=== PATIENT | male | born 1960 | race Caucasian/White ===

== ENCOUNTER 2017-05-04 19:38 | Inpatient (IN) | payer OTHER ==
[~2017-05-04] VITALS: Ht 167.6 cm; Wt 81.6 kg
[~2017-05-04 19:38] MED LIST: AMOX-842 PO; DULCOLAX; OXYC1TAB PO; [UNRECOGNIZED DRUG - CODE] PO
[2017-05-04 19:41] VITALS: BP 130/83
--- NOTE | 2017-05-04 19:45 | NUR ---
Patient to bed 07.
--- NOTE | 2017-05-04 19:58 | NUR ---
56 Y/O M W/C/O ABCESS TO LOWER SIDE IN BETWEEN BUTTOCKS X 2 DAYS. DENIES ANY FEVER OR CHILLS. PT CURRENTLY HAS AN STOMY BAG TO L ABD SIDE D/T HX OF CHRONS DISEASE. MED CHRONS DISEASE.
[2017-05-04] MEDS ORDERED: LIDOCAINE 1% 500 MG/50 ML VIAL INJ ONE (20:25)
--- NOTE | 2017-05-04 20:31 | NUR ---
Dr. Donnelly evaluating patient at bedside.
[2017-05-04] MEDS ORDERED: HYDROmorphone PFS 2 MG/ML SYR IVP ONE (20:35)
[2017-05-04] MEDS ORDERED: NACL 0.9% 1,000 ML IV ONE (20:35)
[2017-05-04] MEDS ORDERED: CLINDAMYCIN 900 MG in DEXTROSE 5% 100 ML IV ONE (20:35)
[2017-05-04] MEDS ORDERED: CLINDAMYCIN 900 MG/6 ML VIAL IV ONE (20:47)
--- NOTE | 2017-05-04 20:55 | NUR ---
Patient going to CT via wheelchair per tech.
--- NOTE | 2017-05-04 21:04 | NUR ---
Patient back from CT via wheelchair per tech.
[2017-05-04 21:05] LABS: BASOPHILS # (AUTO) 0.3 K/uL (0.00-0.22); BASOPHILS % (AUTO) 1.7 % (0.0-2.0); EOSINOPHILS # (AUTO) 0.3 K/uL (0-0.4); EOSINOPHILS % (AUTO) 2.2 % (0.0-4.0); HEMATOCRIT 45.2 % (36-52); HEMOGLOBIN 14.7 g/dL (12.0-18.0); LYMPHOCYTES # (AUTO) 2.2 K/uL (2.0-11.5); LYMPHOCYTES % (AUTO) 14.3 % (20.5-51.1); MEAN CORPUSCULAR HEMOGLOBIN 31 pg (27-31); MEAN CORPUSCULAR HGB CONC 33 g/dL (33-37); MEAN CORPUSCULAR VOLUME 94 fL (80-94); MONOCYTES # (AUTO) 0.7 K/uL (0.8-1.0); MONOCYTES % (AUTO) 4.6 % (1.7-9.3); NEUTROPHILS % (AUTO) 77.2 % (42.2-75.2); PLATELET COUNT (AUTO) 238 K/uL (140-450); RED BLOOD CELL COUNT(AUTO) 4.82 MIL/uL (4.20-6.10); RED CELL DISTRIBUTION WIDTH 13.3 % (11.6-13.7); WHITE BLOOD COUNT (AUTO) 15.5 K/uL (4.8-10.8)
[2017-05-04 21:16] LABS: INR 1.1 (0.8-1.2); PARTIAL THROMBOPLASTIN TIME 27.7 secs (22-35.6); PROTHROMBIN TIME 10.1 secs (10.8-13.4)
[2017-05-04 21:21] LABS: ALBUMIN 3.5 g/dL (3.4-5.0); ANION GAP 12.6 (8-16); CALCIUM 8.8 mg/dL (8.5-10.1); CARBON DIOXIDE 25.2 mmol/L (21-32); POTASSIUM 3.8 mmol/L (3.5-5.1); TOTAL BILIRUBIN 0.4 mg/dL (0.0-1.0); TOTAL PROTEIN, SERUM 7.3 g/dL (6.4-8.2)
[2017-05-04] MEDS: NACL 0.9% 1,000 ML IV SCH (22:17)
[2017-05-04] MEDS ORDERED: ONDANSETRON 4 MG/2 ML VIAL IVP PRN (22:20)
[2017-05-04] MEDS ORDERED: MORPHINE SULFATE 2 MG/ML SYR IVP PRN (22:20)
[2017-05-04] MEDS ORDERED: LORazepam 2 MG/ML VIAL IVP PRN (22:20)
[2017-05-04] MEDS ORDERED: HYDROcodone/APAP 5/325 MG 1 TAB TAB PO PRN (22:20)
[2017-05-04] MEDS ORDERED: ACETAMINOPHEN 325 MG TAB PO PRN (22:20)
[2017-05-04] MEDS ORDERED: oxyCODONE/APAP 5/325 MG 1 TAB TAB PO SCH (22:25)
[2017-05-04] MEDS ORDERED: metroNIDAZOLE 500 MG/NS PREMIX 100 ML IV SCH (22:25)
--- NOTE | 2017-05-04 22:36 | NUR ---
Patient will be admitted to care of DR CURTIS. [facility]. Will go to [id number]. Belongings list completed. Report to BILLIE STOREY.
--- NOTE | 2017-05-04 22:46 | NUR ---
PT TRASFERRED TO MED SURG VIA WHEEL CHAIR BY EMT.
--- NOTE | 2017-05-04 23:07 | NUR ---
RECEIVED FROM ER PER LEXII AWAKE AND ALERT. ORIENTED X 4. DX. OF QIANA RECTAL ABSCESS. NO SOB. CONSULT WITH Kat ALCALA. ROM X 4. CLEAR SPEECH. IVF SITE TO [facility] #20. CARE PLANS FOR THE NIGHT DISCUSSED WITH HIM. CALL LIGHT WITH IN REACH AND ENCOURAGED TO CALL FOR ANY HELP HE MAY NEED OR IF IN PAIN.
--- NOTE | 2017-05-04 23:47 | NUR ---
INFORMED PT. THAT HE IS NPO EFFECTIVE MIDNIGHT ORDERED. "OK"
[2017-05-04 23:49] VITALS: BP 130/83
[2017-05-05] VITALS (9 sets, daily range): BP systolic 109–131; BP diastolic 62–78
[2017-05-05] MEDS: HYDROmorphone PFS 2 MG/ML SYR IVP PRN ×6 (00:32→20:23)
[2017-05-05] MEDS ORDERED: HYDROmorphone PFS 2 MG/ML SYR ONE (00:34)
--- NOTE | 2017-05-05 01:00 | NUR ---
PT. SLEEPING AT THIS TIME. NO RESTLESSNESS NOTED. MEDICATED WITH PAIN RELIEVER REQUESTED WITH DILAUDID 2 MG IVP AT 0030.
--- NOTE | 2017-05-05 03:32 | NUR ---
SLEEPING. NO RESTLESSNESS. CALL LIGHT WITH IN REACH.
--- NOTE | 2017-05-05 04:25 | NUR ---
PT. AWAKE AND ALERT. REQUESTED TO HAVE PAIN RELIEVER RT PERIRECTAL ABSCESS PAIN EARLIER. PT. CAME FROM RESTROOM AMBULATED BY HIMSELF. MEDICATED WITH DILAUDID 2 MG. REQUESTED AND ORDERED.
[2017-05-05] MEDS ORDERED: PIPERACILLIN/TAZOBACTAM 3.375 GM VIAL IV ONE (04:37)
[2017-05-05] MEDS ORDERED: PIPERACILLIN/TAZOBACTAM 3.375 GM in DEXTROSE 5% 50 ML IV SCH (05:00)
[2017-05-05 06:08] LABS: BASOPHILS # (AUTO) 0.1 K/uL (0.00-0.22); BASOPHILS % (AUTO) 1.2 % (0.0-2.0); EOSINOPHILS # (AUTO) 0.2 K/uL (0-0.4); EOSINOPHILS % (AUTO) 1.8 % (0.0-4.0); HEMATOCRIT 39.7 % (36-52); HEMOGLOBIN 13.7 g/dL (12.0-18.0); LYMPHOCYTES # (AUTO) 1.9 K/uL (2.0-11.5); LYMPHOCYTES % (AUTO) 18.2 % (20.5-51.1); MEAN CORPUSCULAR HEMOGLOBIN 32 pg (27-31); MEAN CORPUSCULAR HGB CONC 34 g/dL (33-37); MEAN CORPUSCULAR VOLUME 93 fL (80-94); MONOCYTES # (AUTO) 0.9 K/uL (0.8-1.0); MONOCYTES % (AUTO) 8.1 % (1.7-9.3); NEUTROPHILS # (AUTO) 7.5 K/uL (1.8-7.7); NEUTROPHILS % (AUTO) 70.7 % (42.2-75.2); PLATELET COUNT (AUTO) 212 K/uL (140-450); RED BLOOD CELL COUNT(AUTO) 4.28 MIL/uL (4.20-6.10); RED CELL DISTRIBUTION WIDTH 13.4 % (11.6-13.7); WHITE BLOOD COUNT (AUTO) 10.6 K/uL (4.8-10.8)
[2017-05-05 06:26] LABS: ANION GAP 11.9 (8-16); CALCIUM 7.8 mg/dL (8.5-10.1); CARBON DIOXIDE 26.6 mmol/L (21-32); CREATININE 0.9 mg/dL (0.6-1.3); MAGNESIUM 1.7 mg/dL (1.8-2.4); POTASSIUM 3.5 mmol/L (3.5-5.1); TOTAL BILIRUBIN 0.7 mg/dL (0.0-1.0); TOTAL PROTEIN, SERUM 6.5 g/dL (6.4-8.2)
--- NOTE | 2017-05-05 06:51 | NUR ---
SLEEPING AT THIS TIME. WAKES UP EASILY WHEN TOUCHED OR CALLED BY NAME. ABLE TO USE CALL LIGHT FOR HELP.
--- NOTE | 2017-05-05 07:10 | NUR ---
RECEIVED PT REPORT AT BEDSIDE FROM NIGHT NURSE. PT IS SLEEPING COMFORTABLY IN BED AND SHOWS NO S/S OF DISTRESS ON ROOM AIR. PT HAD NOTED IV ON THE R AC WITH IVF RUNNING. PT HAS COLOSTOMY BAD INTACT. PT SHOWS NO S/S OF DISCOMFORT OR PAIN. PT BED LOWERED WITH CALL LIGHT AT BEDSIDE.
--- NOTE | 2017-05-05 08:30 | NUR ---
PT C/O PAIN OF 10/10. 10 BEING HIS WORST PAIN. PT MEDICATED WITH AVAILABLE PRN PAIN MEDICATION. ADMINISTERED SCHEDULED MEDICATIONS. PT REFUSED SCHEDULED LOVENOX 40MG SQ INJ. PT STATES HIS ABSCESS "BURST". ABSCESS HAS MINIMAL BLOOD AND NOT DRAINING.
[2017-05-05] MEDS: NACL 0.9% 1,000 ML IV SCH ×2 (08:45→19:13)
[2017-05-05] MEDS: ENOXAPARIN 40 MG/0.4 ML SYR SUBQ SCH (08:46)
--- NOTE | 2017-05-05 08:49 | NUR ---
PATIENT HAS BEEN SCREENED AND CATEGORIZED MODERATE NUTRITION RISK. PATIENT WILL BE SEEN WITHIN 3-5 DAYS OF ADMISSION. 05/07/17-05/09/[address]
--- NOTE | 2017-05-05 09:30 | NUR ---
PT IN BED SLEEPING AND SHOWS NO S/S OF DISTRESS.
--- NOTE | 2017-05-05 10:30 | NUR ---
RECEIVED PT IN BED. ASLEEP. AROUSABLE TO VOICE. NO SOB NOTED. DENIES ANY PAIN OR DISCOMFORT AT THIS TIME.POSITIVE BOWEL SOUNDS NOTED ON FOUR QUADRANTS. COLOSTOMY BAG INTACT. PT AMBULATORY. SAFETY PRECAUTION IN PLACE. CALL LIGHT WITHIN REACH.
--- NOTE | 2017-05-05 10:30 | NUR ---
PT AMB TO RESTROOM WITH STEADY GAIT.
--- NOTE | 2017-05-05 10:31 | NUR ---
GAVE PT REPORT TO MAGGIE WISE AT BEDSIDE. PT ENDORSED IN STABLE CONDITION.
--- NOTE | 2017-05-05 11:34 | NUR ---
CALLED DR. QUIROGA'S OFFICE TO FOLLOW UP WITH CONSULT FOR PT. AWAITING CALL BACK.
[2017-05-05] MEDS: PIPER/TAZO 3.375GM/D5W PREMIX 50 ML IV SCH ×2 (12:22→20:23)
--- NOTE | 2017-05-05 12:51 | NUR ---
ASSESSED PT' PERIANAL ABSCESS, MINIMAL SEROSANGUINEOUS DRAINAGE NOTED. PT REFUSED TO PUT DRESSING. OFFLOAD BONY PROMINENCE. REPOSITIONED TO PT'S COMFORT. AWAITING FOR DR. QUIROGA'S CONSULT.
--- NOTE | 2017-05-05 13:08 | NUR ---
DR. QUIROGA CALLED BACK REGARDING CONSULT AND HE SAID HE WILL COME AND SEE THE PT.
[2017-05-05] MEDS ORDERED: BUPIVACAINE-MPF/EPI 0.25% 30 ML VIAL INJ ONE (13:30)
--- NOTE | 2017-05-05 13:42 | NUR ---
PREOP CHECKLIST DONE. VICENTE WISE FROM OR CAME TO MEMBER OF PARLIAMENT PT. ACCORDING TO VICENTE QUIROGA WILL SEE PT IN OR.
[2017-05-05] MEDS ORDERED: PROPOFOL 200 MG/20 ML VIAL IV ONE (13:58)
[2017-05-05] MEDS ORDERED: LIDOCAINE 2% 100 MG/5 ML SYR IVP ONE (13:58)
[2017-05-05] MEDS ORDERED: SEVOFLURANE 250 ML BTL INH ONE (13:58)
[2017-05-05] MEDS ORDERED: fentaNYL 0.05 MG/ML VIAL ONE (14:25)
[2017-05-05] MEDS ORDERED: MIDAZOLAM 2 MG/2 ML VIAL ONE (14:25)
[2017-05-05] MEDS ORDERED: MAG SULF 2000 MG/WATER PREMIX 50 ML IV SCH (14:37)
--- NOTE | 2017-05-05 14:37 | NUR ---
DR. MEDINA CAME TO SEE PT, MADE AWARE THAT PT IS CURRENTLY AT THE OR RIGHT NOW FOR THE SCHEDULED I&D OF PERIANAL ABSCESS WITH DR. QUIROGA. DR. MEDINA ALSO MADE AWARE OF MG 1.7 AND ALBUMIN 3, WITH ORDERS MADE AND CARRIED OUT.
[2017-05-05] MEDS ORDERED: HYDROmorphone 1 MG/ML AMP IVP PRN (14:45)
[2017-05-05] MEDS ORDERED: ONDANSETRON 4 MG/2 ML VIAL IVP PRN (14:45)
--- NOTE | 2017-05-05 15:27 | NUR ---
CM NOTE INITIAL REVIEW FAXED TO [facility] [phone] PH April [phone] AND TO [facility] F [phone] PH [phone] ERICK VILLALOBOS [phone]
--- NOTE | 2017-05-05 16:20 | NUR ---
RECEIVED PT FROM OR S/P INCISION AND DRAINAGE OF PERIANAL ABSCESS. AWAKE, ALERT ORIENTED X4. NO SOB NOTED. PT COMPLAINED OF PERIANAL PAIN OF 9/10, AND NAUSEA AND VOMITING. PT WAS TRYING TO VOMIT BUT ONLY A SPOONFUL OF THICK SALIVA CAME OUT. MEDICATED ORDERED. ORDERED MAG RIDER GIVEN TO PT FOR MAG 1.[address] MEDINA. DRESSING ON PERIANAL AREA DRY AND INTACT. VITAL SIGNS TAKEN AND RECORDED.
--- NOTE | 2017-05-05 19:19 | NUR ---
PT AWAKE. FAMILY AT BEDSIDE. NO SOB. DENIES ANY PAIN OR DISCOMFORT AT THIS TIME. PT KEPT CLEAN DRY AND COMFORTABLE. NEEDS ATTENDED. ENDORSED TO NEXT SHIFT ON STABLE CONDITION FOR CONTINUITY OF CARE.
--- NOTE | 2017-05-05 19:21 | NUR ---
RECEIVED FROM AM RN IN BED WITH VISITORS. NO COMPLAINTS DONE. NO SOB. CALL LIGHT WITH IN REACH. ABLE TO VERBALIZE NEEDS WELL. DENIES PAIN AT THIS TIME. DRESSING TO I AND D PERIRECTAL INTACT AND NO BLEEDING.
--- NOTE | 2017-05-05 21:13 | NUR ---
SLEEPING AT THIS TIME. CALL LIGHT WITH IN REACH.
[2017-05-06] MEDS: HYDROmorphone PFS 2 MG/ML SYR IVP PRN ×7 (00:58→22:49)
[2017-05-06 01:09] VITALS: BP 130/82
--- NOTE | 2017-05-06 01:11 | NUR ---
PT. WOKE UP AND REQUESTED FOR PAIN RELIEVER. MEDICATED ORDERED. VERBALIZES WELL. A/O X 4. ROM X 4. CLEAR SPEECH.
[2017-05-06] MEDS: NACL 0.9% 1,000 ML IV SCH ×3 (04:17→21:16)
--- NOTE | 2017-05-06 04:51 | NUR ---
PT. WENT BRP . INDEPENDENT. ASKED FOR HELP RT DRESSING TO I AND D PERIRECTAL ABSCESS FELL. PLACED NEW DRESSING ON IT. TOLERATED WELL. WENT BACK TO SLEEP. NO SOB. DENIES PAIN.
[2017-05-06] MEDS: PIPER/TAZO 3.375GM/D5W PREMIX 50 ML IV SCH ×3 (05:49→21:14)
--- NOTE | 2017-05-06 06:10 | NUR ---
AWAKE AT THIS TIME. LOCOMOTIVE REPAIRER DIESEL IN HERE TO COLLECT BLOOD SPECIMEN .MEDICATED WITH PAIN RELIEVER REQUESTD. COMPLAINED OF PAIN TO S/P I AND D QIANA RECTAL ABSCESS. ABLE TO VERBALIZE NEEDS WELL.
[2017-05-06 06:46] LABS: ANION GAP 9.2 (8-16); CARBON DIOXIDE 28.8 mmol/L (21-32); CREATININE 0.8 mg/dL (0.6-1.3)
[2017-05-06 06:49] LABS: BASOPHILS # (AUTO) 0.1 K/uL (0.00-0.22); BASOPHILS % (AUTO) 1.8 % (0.0-2.0); EOSINOPHILS # (AUTO) 0.2 K/uL (0-0.4); EOSINOPHILS % (AUTO) 2.3 % (0.0-4.0); HEMATOCRIT 40.2 % (36-52); HEMOGLOBIN 13.7 g/dL (12.0-18.0); LYMPHOCYTES # (AUTO) 1.8 K/uL (2.0-11.5); LYMPHOCYTES % (AUTO) 21.5 % (20.5-51.1); MEAN CORPUSCULAR HEMOGLOBIN 31 pg (27-31); MEAN CORPUSCULAR HGB CONC 34 g/dL (33-37); MEAN CORPUSCULAR VOLUME 92 fL (80-94); MONOCYTES # (AUTO) 0.5 K/uL (0.8-1.0); MONOCYTES % (AUTO) 6.1 % (1.7-9.3); NEUTROPHILS # (AUTO) 5.5 K/uL (1.8-7.7); NEUTROPHILS % (AUTO) 68.3 % (42.2-75.2); PLATELET COUNT (AUTO) 196 K/uL (140-450); RED BLOOD CELL COUNT(AUTO) 4.37 MIL/uL (4.20-6.10); RED CELL DISTRIBUTION WIDTH 13.3 % (11.6-13.7); WHITE BLOOD COUNT (AUTO) 8.1 K/uL (4.8-10.8)
[2017-05-06 06:54] LABS: MAGNESIUM 2.1 mg/dL (1.8-2.4); PHOSPHORUS 2.2 mg/dL (2.5-4.9)
--- NOTE | 2017-05-06 07:25 | NUR ---
REPORT RECEIVED FROM ROLLOUT MANAGER, PT AAOX4, PT RESTING QUIETLY IN BED, RESP EVEN UNLABORED ON ROOM AIR, SKIN WARM DRY COLOR WNL, PLAN OF CARE REVIEWED, NO QUESTIONS OR CONCERNS, PT REPORTS SLIGHT NAUSEA BUT DENIES NEED FOR MEDICATION, CALL LOPEZ WITHIN REACH, SIDE RAILS UP, BED LOCKED IN LOW POSITION, WILL CONTINUE TO MONITOR.
[2017-05-06 08:00] VITALS: BP 110/75
[2017-05-06] MEDS: ENOXAPARIN 40 MG/0.4 ML SYR SUBQ SCH (08:04)
[2017-05-06] MEDS ORDERED: VANCOMYCIN PER PHARMACY MC PRN (14:05)
[2017-05-06 16:00] VITALS: BP 118/74
[2017-05-06] MEDS: VANCOMYCIN 1GM/DEXT 5% PREMIX 200 ML IV SCH (17:33)
--- NOTE | 2017-05-06 19:18 | NUR ---
REPORT GIVEN TO NIGHT NURSE, PT IN STABLE CONDITION.
--- NOTE | 2017-05-06 19:25 | NUR ---
RECEIVED PT IN STABLE CONDITION FROM AM NURSE. AWAKE, ALERT AND ORIENTED X4. MED SURG PT. NO C/O ANY PAIN AT THIS TIME. HAS IVF INFUSING WELL ON THE RT AC #20. CLEAR AND PATENT. BED ON LOW POSITION. SIDE RAILS UP X2. CALL LIGHT PLACED WITHIN EASY REACH. INSTRUCTED TO CALL IF NEED ASSISTANCE. PLAN OF CARE DISCUSSED AND VERBALIZED UNDERSTANDING. STILL NEED STOOL SPECIMEN . INSTRUCTED. WILL CONTINUE TO MONITOR. Addendum: 05/06/17 at 1959 by Geeta Hutton RN PT DOESN'T NEED STOOL SPECIMEN.
--- NOTE | 2017-05-06 19:40 | NUR ---
PT HAS DRESSING ON THE PERIRECTAL AREA, DRY AND INTACT AT THIS TIME. COLOSTOMY ON LT ABDOMEN.
[2017-05-06 22:12] VITALS: BP 121/68
--- NOTE | 2017-05-06 22:49 | NUR ---
C/O PAIN ON THE PERIRECTAL AREA. MEDICATED ORDERED FOR PAIN . WILL CONTINUE TO MONITOR.
[2017-05-06 23:45] VITALS: BP 119/73
[2017-05-07] MEDS: NACL 0.9% 1,000 ML IV SCH ×4 (00:17→20:17)
--- NOTE | 2017-05-07 01:30 | NUR ---
MADE ROUNDS. PT SLEEPING. NO S/S OF ANY DISCOMFORT NOTED. WILL CONTINUE TO MONITOR.
[2017-05-07] MEDS: HYDROmorphone PFS 2 MG/ML SYR IVP PRN ×6 (02:44→22:44)
--- NOTE | 2017-05-07 03:15 | NUR ---
ASLEEP. NO S/S OF ANY PAIN AT THIS TIME.
[2017-05-07] MEDS: VANCOMYCIN 1GM/DEXT 5% PREMIX 200 ML IV SCH (04:10)
[2017-05-07] MEDS: PIPER/TAZO 3.375GM/D5W PREMIX 50 ML IV SCH ×3 (05:50→20:42)
[2017-05-07 06:45] VITALS: BP 136/80
[2017-05-07 06:47] LABS: BASOPHILS # (AUTO) 0.2 K/uL (0.00-0.22); BASOPHILS % (AUTO) 2.7 % (0.0-2.0); EOSINOPHILS # (AUTO) 0.4 K/uL (0-0.4); EOSINOPHILS % (AUTO) 5.2 % (0.0-4.0); HEMATOCRIT 42.5 % (36-52); HEMOGLOBIN 14.1 g/dL (12.0-18.0); LYMPHOCYTES # (AUTO) 2.4 K/uL (2.0-11.5); LYMPHOCYTES % (AUTO) 34.7 % (20.5-51.1); MEAN CORPUSCULAR HEMOGLOBIN 31 pg (27-31); MEAN CORPUSCULAR HGB CONC 33 g/dL (33-37); MEAN CORPUSCULAR VOLUME 93 fL (80-94); MONOCYTES # (AUTO) 0.3 K/uL (0.8-1.0); MONOCYTES % (AUTO) 4.9 % (1.7-9.3); NEUTROPHILS # (AUTO) 3.7 K/uL (1.8-7.7); NEUTROPHILS % (AUTO) 52.5 % (42.2-75.2); PLATELET COUNT (AUTO) 238 K/uL (140-450); RED BLOOD CELL COUNT(AUTO) 4.55 MIL/uL (4.20-6.10)
--- NOTE | 2017-05-07 06:47 | NUR ---
AWAKE. C/O PAIN ON PERIRECTAL AREA. MEDICATED ORDERED.
[2017-05-07 06:49] LABS: ANION GAP 9.5 (8-16); CARBON DIOXIDE 28.2 mmol/L (21-32); CREATININE 0.9 mg/dL (0.6-1.3); POTASSIUM 3.7 mmol/L (3.5-5.1)
[2017-05-07 06:55] LABS: MAGNESIUM 1.9 mg/dL (1.8-2.4); PHOSPHORUS 1.8 mg/dL (2.5-4.9)
--- NOTE | 2017-05-07 07:30 | NUR ---
ENDORSED PT IN STABLE CONDITION TO AM NURSE.
--- NOTE | 2017-05-07 07:35 | NUR ---
REPORT RECEIVED FROM FLOOR CLERK, CARE ASSUMED AT THIS TIME, PT AAOX4, RESP EVEN UNLABORED ON ROOM AIR IN NAD, PLAN OF CARE REVIEWED, PT DENIES ANY IMMEDIATE NEEDS, IVF INFUSING WELL, SITE CLEAR, CALL LOPEZ WITHIN REACH, SIDE RAILS UP, BED LOCKED IN LOW POSITION, WILL CONTINUE TO MONITOR.
[2017-05-07 08:00] VITALS: BP 120/74
[2017-05-07] MEDS: ENOXAPARIN 40 MG/0.4 ML SYR SUBQ SCH (09:00)
--- NOTE | 2017-05-07 09:01 | NUR ---
PHILOMENA HELD, PT WITH HX CROHNS
[2017-05-07] MEDS ORDERED: POTASSIUM CHLORIDE 10 MEQ TABER PO SCH (10:40)
--- NOTE | 2017-05-07 11:06 | NUR ---
C/O INCREASED PAIN, PT REPORTS PAIN IS EXCRUCIATING 08/06, PRN DILAUDID GIVEN AT THIS TIME, BP 118/70, KDUR HELD, POTASSIUM WNL 3.7.
--- NOTE | 2017-05-07 13:25 | NUR ---
SCHEDULED ZOSYN STARTED, PT RESTING IN BED IN NAD, RESP EVEN UNLABORED ON ROOM AIR, PT DENIES ANY IMMEDIATE NEEDS, PT REPORTS JUST EMPTYING HIS COLOSTOMY BAG APPROX 200ML LOOSE STOOL, CALL LOPEZ WITHIN REACH, SIDE RAILS UP, BED LOCKED IN LOW POSITION, WILL CONTINUE TO MONITOR.
[2017-05-07 16:00] VITALS: BP 104/60
--- NOTE | 2017-05-07 16:00 | NUR ---
PT SITTING WATCHING TV, STATES PAIN IS UNDER CONTROLLED, VITALS STABLE, PT DENIES ANY IMMEDIATE NEEDS, BED LOCKED IN LOW POSITION, CALL LOPEZ WITHIN REACH, WILL CONTINUE TO MONITOR.
--- NOTE | 2017-05-07 18:48 | NUR ---
PT C/O SEVER PAIN AGAIN, PT AAOX4, RESP EVEN UNLABORED, SPEAKS CLEARLY IN NAD, RATES PAIN 8/10, PRN DILAUDID GIVEN PER ORDER, DRESSING CDI, CALL LOPEZ WITHIN REACH, SIDE RAIL UP, BED LOCKED IN LOW POSITION, PT CHANGED HIS OWN COLOSTOMY BAG.
--- NOTE | 2017-05-07 19:25 | NUR ---
REPORT GIVEN TO ETCHER AIRCRAFT NURSE, PT IN STABLE CONDITION.
--- NOTE | 2017-05-07 19:30 | NUR ---
RECEIVED PT IN STABLE CONDITION FROM AR NURSE. AWAKE, ALERT AND ORIENTED X4. MED SURG PT. WITH NO C/O DISCOMFORT NOR PAIN AT THIS TIME. AMBULATORY. WITH IVF INFUSING WELL ON THE RT WRIST #20. CLEAR AND PATENT. DRESSING ON PERIRECTAL AREA CLEAN AND DRY. PLAN OF CARE DISCUSSED AND VERBALIZED UNDERSTANDING. BED ON LOW POSITION, SIDE RAILS UP X2. CALL LIGHT PLACED WITHIN EASY REACH. WILL CONTINUE TO MONITOR.
--- NOTE | 2017-05-07 21:00 | NUR ---
AWAKE, WATCHING TV. NO /CO PAIN NOTED.
[2017-05-07 22:42] VITALS: BP 114/69
--- NOTE | 2017-05-08 02:00 | NUR ---
REPOSITIONED FOR COMFORT. NO S/S OF DISTRESS NOR PAIN NOTED. WILL CONTINUE TO MONITOR.
[2017-05-08] MEDS: HYDROmorphone PFS 2 MG/ML SYR IVP PRN ×3 (02:57→10:56)
[2017-05-08] MEDS: PIPER/TAZO 3.375GM/D5W PREMIX 50 ML IV SCH ×2 (04:30→12:04)
--- NOTE | 2017-05-08 04:40 | NUR ---
SLEEPING WELL A THIS TIME. NO S/S OF ANY DISCOMFORT NOTED.
[2017-05-08 06:13] LABS: BASOPHILS # (AUTO) 0.1 K/uL (0.00-0.22); BASOPHILS % (AUTO) 1.5 % (0.0-2.0); EOSINOPHILS # (AUTO) 0.4 K/uL (0-0.4); EOSINOPHILS % (AUTO) 5.7 % (0.0-4.0); HEMATOCRIT 43.3 % (36-52); HEMOGLOBIN 14.2 g/dL (12.0-18.0); LYMPHOCYTES # (AUTO) 2.3 K/uL (2.0-11.5); LYMPHOCYTES % (AUTO) 33.8 % (20.5-51.1); MEAN CORPUSCULAR HEMOGLOBIN 31 pg (27-31); MEAN CORPUSCULAR HGB CONC 33 g/dL (33-37); MEAN CORPUSCULAR VOLUME 93 fL (80-94); MONOCYTES # (AUTO) 0.4 K/uL (0.8-1.0); MONOCYTES % (AUTO) 5.5 % (1.7-9.3); NEUTROPHILS # (AUTO) 3.7 K/uL (1.8-7.7); NEUTROPHILS % (AUTO) 53.5 % (42.2-75.2); PLATELET COUNT (AUTO) 247 K/uL (140-450); RED BLOOD CELL COUNT(AUTO) 4.64 MIL/uL (4.20-6.10); WHITE BLOOD COUNT (AUTO) 6.9 K/uL (4.8-10.8)
[2017-05-08] MEDS: NACL 0.9% 1,000 ML IV SCH ×2 (06:17→07:05)
[2017-05-08 06:39] LABS: MAGNESIUM 1.9 mg/dL (1.8-2.4); PHOSPHORUS 2.9 mg/dL (2.5-4.9)
[2017-05-08 06:46] LABS: ANION GAP 11.4 (8-16); CALCIUM 8.3 mg/dL (8.5-10.1); CARBON DIOXIDE 27.4 mmol/L (21-32); POTASSIUM 3.8 mmol/L (3.5-5.1)
--- NOTE | 2017-05-08 07:00 | NUR ---
PT ALERT AND ORIENTED X4. BREATHING EVENLY AND UNLABORED. NO SIGNS OF ACUTE DISTRESS. SKIN IS WARM AND DRY. PT WITH S/P INCISION AND DRAINAGE ON PERIRECTAL ABSCESS. DRESSING KEPT INTACT AND DRY. NO EPISODES OF ANY NAUSEA OR VOMITING, COLOSTOMY INTACT WITH NO NOTED BM AT THIS TIME. ABLE TO VOID INDEPENDENTLY. NO C/O ANY PAIN OR DISCOMFORT AT THIS TIME. ALL NEEDS ATTENDED, SAFETY PRECAUTIONS MAINTAINED. CALL LIGHT WITHIN REACH.
[2017-05-08 07:43] VITALS: BP 110/75
[2017-05-08] MEDS: ENOXAPARIN 40 MG/0.4 ML SYR SUBQ SCH (08:42)
--- NOTE | 2017-05-08 09:08 | NUR ---
CM NOTE CONCURRENT REVIEW FAXED TO [facility] [phone] [facility] [phone] AND TO [facility] [phone] ERICK VILLALOBOS [phone] Addendum: 05/08/17 at 1051 by Danyell Lyles SPOKE WITH MANUEL OF [facility] [phone] AND HE SAID THEIR CONTRACTED HOME HEALTH INCLUDE [facility] AND [facility]. DEANNA CHIN
--- NOTE | 2017-05-08 10:06 | NUR ---
SS NOTE: PER BLADIMIR FROM [facility] ([phone]), THEY WILL BE ABLE TO ACCEPT PT ONCE THEY RECEIVE AUTH FROM PT'S INSURANCE. SHE ALSO STATED THAT SHE WILL CALL ERICK AT [facility] TO OBTAIN AUTH.
--- NOTE | 2017-05-08 13:07 | NUR ---
SS NOTE: PER BLADIMIR FROM [facility] ([phone]), THEY ALREADY TALKED TO [facility] AND THEY HAVE A NURSE AVAILABLE TO COME SEE PT TOMORROW IF PT IS DISCHARGED TODAY.
--- NOTE | 2017-05-08 14:50 | NUR ---
PT REQUESTED TO SIGN AMA, RISKS AND BENEFITS EXPLAINED. PT VERBALIZED UNDERSTANDING. ALERT AND ORIENTED, NO SIGNS OF ACUTE DISTRESS. CHARGE NURSE AND SENIOR ENVIRONMENTAL PRACTICE LEADER AWARE. DR MEDINA TO BE MADE AWARE. IV LINE AND WRIST BANDS REMOVED. PERSONAL BELONGINGS WITH PT UPON LEAVING UNIT. WOUND CARE TEACHING DONE AND OFFERED WOUND CARE SUPPLIES. PT VERBALIZED "I HAVE SOME WOUND CARE SUPPLIES AT HOME, I'LL BE FINE". ESCORTED TO FRONT LOBBY. PICKED UP BY FAMILY BY PRIVATE AUTO.
== END 2017-05-08 14:50 | disposition left against medical advice (07) | DRG 710 ==
LOC: MED 19:38 → MTU 22:21
PROVIDERS: ADMIT Internal Medicine Pulmonary Disease; ATTEND Internal Medicine Pulmonary Disease
PROC: 0D9Q3ZZ Drainage of Anus, Percutaneous Approach (ICD-10-PCS; principal; 2017-05-05 13:30)
DX: A41.9 Sepsis, unspecified organism (principal); K50.90 Crohn's disease, unspecified, without complications; K61.1 Rectal abscess; N20.0 Calculus of kidney; F12.90 Cannabis use, unspecified, uncomplicated; L52 Erythema nodosum; K64.4 Residual hemorrhoidal skin tags
CPT/HCPCS: 36415; 71010; 80048; 80053; 83735; 84100; 85025; 85610; 85730; 87040; 87081; 93005; 96361; 96365; 96375; 99285; J1170; J1650; J2001; J2250; J2405; J2543; J2704; J3010; J3370; J3475; J3490; J7030; J7060; Q0092

== ENCOUNTER 2017-08-07 16:12 | Inpatient (IN) | payer OTHER ==
[~2017-08-07] VITALS: Ht 172.7 cm; Wt 83.9 kg
[2017-08-07 16:32] VITALS: BP 125/89
--- NOTE | 2017-08-07 16:37 | NUR ---
Patient ambulated to bed 6. RN evaluating patient at bedside.
--- NOTE | 2017-08-07 16:44 | NUR ---
PATIENT PRESENTS TO ED WITH C/O ABSCESS ON RIGHT BUTTOCKS; SEEN LAST APRIL FOR ABSCESS ON LEFT BUTTOCKS;HX OF CHRON'S DZ;RX OF METHOTREXATE.DENIES N/V/D; SKIN IS PINK/WARM/DRY; AAOX4 WITH EVEN AND STEADY GAIT; LUNGS CLEAR BL; HR EVEN AND REGULAR; PT DENIES ANY FEVER, CP, SOB, OR COUGH AT THIS TIME; PATIENT STATES PAIN OF 8/10 AT THIS TIME;PATIENT POSITIONED FOR COMFORT; HOB ELEVATED; BEDRAILS UP X2; BED DOWN. ER MD MADE AWARE OF PT STATUS.
[2017-08-07] MEDS: NACL 0.9% 1,000 ML IV SCH (17:16)
[2017-08-07 17:18] LABS: ANION GAP 8.5 (8-16); CARBON DIOXIDE 29.4 mmol/L (21-32); CREATININE 1.3 mg/dL (0.7-1.3); POTASSIUM 3.9 mmol/L (3.5-5.1)
[2017-08-07] MEDS ORDERED: ONDANSETRON 4 MG/2 ML VIAL IVP PRN (17:20)
[2017-08-07] MEDS ORDERED: LORazepam 2 MG/ML VIAL IVP PRN (17:20)
[2017-08-07] MEDS ORDERED: MORPHINE SULFATE 2 MG/ML SYR IVP PRN (17:20)
[2017-08-07] MEDS ORDERED: HYDROcodone/APAP 5/325 MG 1 TAB TAB PO PRN (17:20)
[2017-08-07] MEDS ORDERED: ACETAMINOPHEN 325 MG TAB PO PRN (17:20)
[2017-08-07 17:23] LABS: ALBUMIN 3.4 g/dL (3.4-5.0); BASOPHILS # (AUTO) 0.5 K/uL (0.00-0.22); EOSINOPHILS # (AUTO) 0.5 K/uL (0-0.4); HEMATOCRIT 41.8 % (36-52); LYMPHOCYTES # (AUTO) 1.6 K/uL (2.0-11.5); MEAN CORPUSCULAR HEMOGLOBIN 32 pg (27-31); MEAN CORPUSCULAR HGB CONC 33 g/dL (33-37); MEAN CORPUSCULAR VOLUME 94 fL (80-94); MONOCYTES # (AUTO) 0.8 K/uL (0.8-1.0); NEUTROPHILS # (AUTO) 4.9 K/uL (1.8-7.7); PLATELET COUNT (AUTO) 229 K/uL (140-450); RED BLOOD CELL COUNT(AUTO) 4.43 MIL/uL (4.20-6.10); RED CELL DISTRIBUTION WIDTH 13.9 % (11.6-13.7); TOTAL BILIRUBIN 0.2 mg/dL (0.0-1.0); WHITE BLOOD COUNT (AUTO) 8.3 K/uL (4.8-10.8)
[2017-08-07 17:26] LABS: PROTHROMBIN TIME 10.2 secs (10.8-13.4)
--- NOTE | 2017-08-07 17:39 | NUR ---
called tele to give report;spoke to zuleyma;asked me to call back after 5 mins;
--- NOTE | 2017-08-07 17:53 | NUR ---
Patient will be admitted to care of dr delarosa. Admited to tele. Will go to room 106 A. Belongings list completed. Report to BILLIE MAGDALENO.
--- NOTE | 2017-08-07 18:20 | NUR ---
RECEIVED REPORT FROM ER NURSE ESPERANZA. PT AAO. INITIAL ASSESSMENT DONE. RESP EVEN AND UNLABORED. IV INTACT, 20G R AC, NO SWELLING OR REDNESS NOTED. SKIN IS WARM, DRY AND INTACT. PERIRECTAL ABSCESS NOTED ON RIGHT BUTTOCK, SCAR ON LT BUTTOCK NOTED. PLAN OF CARE DISCUSSED WITH PT, VERBALIZED UNDERSTANDING. SAFETY MEASURES IN PLACED. CALL LIGHT WITHIN REACH, SIDE RAILS UP, BED ON LOW POSITION. WILL CONTINUE TO [place]ONT[place].
--- NOTE | 2017-08-07 19:14 | NUR ---
PT C/O PAIN IN HIS BUTTOCK. OFFERED NORCO PER MD ORDER. PT REFUSED. WILL NOTIFY MD.
--- NOTE | 2017-08-07 19:20 | NUR ---
ENDORSED CARE TO PM NURSE FOR CONTINUITY OF CARE. PT IS IN STABLE CONDITION.
--- NOTE | 2017-08-07 19:21 | NUR ---
RECEli. REPORT FROM AM NURSE, WILL ADMIT PATIENT.
[2017-08-07 19:35] VITALS: BP 117/74
--- NOTE | 2017-08-07 19:35 | NUR ---
Admitted from ER TO MED SURGICAL UNIT, with chief complaint of PAIN AND SWELLING ON THE RIGHT BUTTOCKS , 56 y/o ,Male, Cooperative, AWAKE, A/OX4. AMBULATORY TO THE BR. IV OF NS AT 100 ML/HR INFUSING, RIGHT AC G20. LUNGS CLEAR ON BILATERAL AUSCULTATION. ABDOMEN SOFT, WITH POSITIVE BOWEL SOUNDS ON ALL QUADRANTS. WITH REDNESS, SWELLING AT THE RIGHT BUTTOCKS, NO OPEN WOUNDS. PAIN IN THE SITE IS 6/10, OFFERED NORCO BUT REFUSED, STATED NORCO DOES NOT WORK FOR HIM AND HE IS ALLERGIC TO MORPHINE, CAUSES HIVES, WANTS DILAUDID. WILL CALL MD.oriented to call light, bed, phone,television, bathroom, smoking policy,visiting hours, procedures, ID bracelet on. Belongings list checked.
[2017-08-07] MEDS ORDERED: ZOLPIDEM 5 MG TAB PO PRN (19:40)
--- NOTE | 2017-08-07 19:40 | NUR ---
COLOSTOMY BAG IN THE LEFT SIDE OF ABDOMEN INTACT, NO BM NOTED.
--- NOTE | 2017-08-07 19:40 | NUR ---
SPOKE WITH DR. JAIMES, FRUIT BAR MAKER FOR DR. CURTIS, INFORMED PATIENT STATED NORCO DOES NOT WORK FOR HIM, PATIENT WANTS 2 MG. DILAUDID. ORDERED DILAUDID 0.5 MG. IV 16 HOURS FOR BREAKTHROUGH PAIN AND AMBIEN FOR SLEEP. WILL MEDICATE ORDERED.
--- NOTE | 2017-08-07 20:00 | NUR ---
Patient's Plan of Care was discussed and reviewed with INVENTORY AND PRICING ASSOCIATE: NEIDA KNAPP
[2017-08-07] MEDS: PIPER/TAZO 3.375GM/D5W PREMIX 50 ML IV SCH (20:37)
[2017-08-07] MEDS: HYDROmorphone 1 MG/ML AMP IVP PRN (20:41)
[2017-08-07] MEDS ORDERED: PIPERACILLIN/TAZOBACTAM 3.375 GM in DEXTROSE 5% 50 ML IV SCH (21:00)
--- NOTE | 2017-08-07 23:25 | NUR ---
SPOKE WITH DR. QUIROGA, WILL ORDER OBTAIN CONSENT FOR I & D RIGHT PERIANAL ABSCESS/DEBRIDEMENT.
[2017-08-08] VITALS (10 sets, daily range): BP systolic 111–137; BP diastolic 66–85
--- NOTE | 2017-08-08 | NUR ---
SLEEPING COMFORTABLY IN BED.
--- NOTE | 2017-08-08 02:00 | NUR ---
AMBULATED TO BR TO VOID, BACK TO BED AFTER VOIDING. REMINDED HE IS ALREADY NPO, VERBALIZED UNDERSTANDING.
[2017-08-08] MEDS: HYDROmorphone 1 MG/ML AMP IVP PRN ×3 (02:22→12:15)
[2017-08-08] MEDS: NACL 0.9% 1,000 ML IV SCH ×2 (04:05→13:16)
[2017-08-08] MEDS: PIPER/TAZO 3.375GM/D5W PREMIX 50 ML IV SCH ×2 (04:42→12:15)
--- NOTE | 2017-08-08 06:05 | NUR ---
WENT TO THE BR AND CLEANSED HIS OSTOMY BAG.
--- NOTE | 2017-08-08 07:00 | NUR ---
CONDITION REMAIN STABLE. WILL ENDORSE TO AM NURSE FOR CONTINUITY OF CARE.
--- NOTE | 2017-08-08 07:01 | NUR ---
RECEIVED PT FROM AUTO AIR CONDITIONING INSTALLER NURSE AT BEDSIDE. PT IS A&OX4. PT HAS IV ON R AC 20 G RUNNING NS@100. PT HAS COLOSTOMY BAG, SELF-CARE, INTACT. PT HAS R PERIANAL ABSCESS, SCHEDULED FOR I&D TODAY. CONSENT ALREADY IN CHART. PT IN STABLE CONDITION. CALL LIGHT WITHIN REACH. WILL CONTINUE TO MONITOR.
--- NOTE | 2017-08-08 08:15 | NUR ---
PATIENT HAS BEEN SCREENED AND CATEGORIZED MODERATE NUTRITION RISK. PATIENT WILL BE SEEN WITHIN 3-5 DAYS OF ADMISSION. 08/10/17-08/12/[address]
[2017-08-08] MEDS ORDERED: DEXAMETHASONE 4 MG/ML VIAL IVP ONE (08:45)
[2017-08-08] MEDS ORDERED: ONDANSETRON 4 MG/2 ML VIAL IVP ONE (08:45)
[2017-08-08] MEDS ORDERED: SEVOFLURANE 250 ML BTL INH ONE (08:45)
[2017-08-08] MEDS ORDERED: PROPOFOL 200 MG/20 ML VIAL IV ONE (08:45)
[2017-08-08] MEDS ORDERED: MIDAZOLAM 2 MG/2 ML VIAL ONE (08:48)
[2017-08-08] MEDS ORDERED: MEPERIDINE 50 MG/ML SYR ONE (08:49)
[2017-08-08] MEDS ORDERED: fentaNYL 0.05 MG/ML VIAL ONE (08:49)
[2017-08-08] MEDS ORDERED: ENOXAPARIN 40 MG/0.4 ML SYR SUBQ SCH (09:00)
--- NOTE | 2017-08-08 09:00 | NUR ---
BELTRAN QUACH PT IS HAVING SURGERY.
[2017-08-08] MEDS: BUPIVACAINE-MPF 0.25% 30 ML VIAL INJ ONE ×2 (09:01→09:18)
[2017-08-08] MEDS ORDERED: LACTATED RINGERS 1,000 ML IV SCH (09:22)
[2017-08-08] MEDS ORDERED: ONDANSETRON 4 MG/2 ML VIAL IVP PRN (09:25)
[2017-08-08] MEDS ORDERED: MEPERIDINE 25 MG/ML SYR IVP PRN (09:25)
[2017-08-08] MEDS ORDERED: diphenhydrAMINE 50 MG/ML VIAL IVP PRN (09:25)
[2017-08-08] MEDS ORDERED: HYDROmorphone 1 MG/ML AMP IVP PRN (09:25)
--- NOTE | 2017-08-08 10:20 | NUR ---
PT CAME BACK FROM OR. RECEIVED REPORT FROM OR NURSE ESTEVAN AT BEDSIDE. PT IS S/P R PERIANAL ABSCESS I&D. PT IN STABLE CONDITION. WILL MONITOR VS CLOSELY. CALL LIGHT WITHIN REACH.
--- NOTE | 2017-08-08 10:23 | NUR ---
DR. CURTIS EXAMINED PT IN ROOM. STATED PT CAN GO HOME IF STABLE.
[2017-08-08] MEDS ORDERED: CEPH250C16 PO (10:34)
--- NOTE | 2017-08-08 11:19 | NUR ---
CM NOTE INITIAL REVIEW AND ORDER FOR HOME HEALTH FAXED TO [facility] [phone] CELESTINE JHONNY PH [phone] AND TO [facility] [place] [phone] CELESTINE MURCIA PH [phone] SPOKE WITH CELESTINE MURCIA OF [facility] [place] PH [phone] EXT [phone] WHO SAID PATIENT HAS ALREADY BEEN WITH [facility] BEFORE, HOME HEALTH AUTH# [id number] FAXED INQUIRY TO [facility] AND SPOKE WITH BLADIMIR PH [phone] WHO SAID THEY CAN ACCEPT THE PATIENT AND HAS A NURSE TO SEE THE PATIENT WHEN DISCHARGED
--- NOTE | 2017-08-08 11:19 | NUR ---
TREE FROM [facility]NA[facility] CALLED, REQUESTING PT BE GIVEN A FEW DAYS WORTH WOUND CARE SUPPLIES WHEN DISCHARGED. WILL PROVIDE PT WITH WOUND CARE SUPPLIES AT DISCHARGE.
--- NOTE | 2017-08-08 12:00 | NUR ---
PT GOT UP TO WALK AROUND IN ROOM. NO DISTRESS NOTED. VS STABLE. CALL LIGHT WITHIN REACH. WILL CONTINUE TO MONITOR.
--- NOTE | 2017-08-08 13:30 | NUR ---
PT IS RESTING COMFORTABLY IN BED. CALL LIGHT WITHIN REACH. WILL CONTINUE TO MONITOR.
--- NOTE | 2017-08-08 15:20 | NUR ---
GAVE DC INSTRUCTIONS TO PT, PT VERBALIZED UNDERSTANDING AND SIGNED ALL PAPERWORK. GAVE PT 4 DSG CHANGE WORTH OF WOUND CARE SUPPLIES, GAVE PT INSTRUCTIONS ON HOW TO TAKE CARE OF HIS WOUND, PT VERBALIZED UNDERSTANDING. PT WILL CALL NURSE WHEN RIDE IS HERE.
--- NOTE | 2017-08-08 15:25 | NUR ---
INFORMED PT THAT HOME HEALTH AGENCY IS [facility], THE AGENCY WILL CONTACT PT. PT VERBALIZED UNDERSTANDING.
--- NOTE | 2017-08-08 17:00 | NUR ---
REMOVED PT'S IV CANNULA INTACT. WRIST BANDS ALL CUT OFF. WHEELED PT OUT OF HOSPITAL. PT TOOK ALL BELONGINGS. PT IN STABLE CONDITION.
== END 2017-08-08 17:00 | disposition home health service (06) | DRG 226 ==
LOC: MED 16:12 → MTU 17:22
PROVIDERS: ADMIT Hospitalist; ATTEND Hospitalist
PROC: 0D9Q0ZZ Drainage of Anus, Open Approach (ICD-10-PCS; principal; 2017-08-08 08:45)
DX: K61.2 Anorectal abscess (principal); K50.90 Crohn's disease, unspecified, without complications; F12.90 Cannabis use, unspecified, uncomplicated; L08.9 Local infection of the skin and subcutaneous tissue, unspecified; Z88.5 Allergy status to narcotic agent; Z93.3 Colostomy status
CPT/HCPCS: 36415; 71010; 80053; 85025; 85610; 85730; 87070; 87075; 87081; 87186; 87205; 93005; 99285; J1100; J1170; J2175; J2250; J2405; J2543; J2704; J3010; J3490; J7030; Q0092

== ENCOUNTER 2017-09-05 12:08 | Emergency (ER) | payer OTHER ==
[~2017-09-05] VITALS: Ht 172.7 cm; Wt 83.0 kg
[~2017-09-05 12:08] MED LIST changes: +ACET-7169 PO; -AMOX-842 PO; +CEPH250C16 PO; -DULCOLAX; -OXYC1TAB PO; -[UNRECOGNIZED DRUG - CODE] PO
[2017-09-05 12:21] VITALS: BP 150/83
[2017-09-05] MEDS ORDERED: METH2.5T6 PO (12:27)
[2017-09-05] MEDS ORDERED: [UNRECOGNIZED DRUG - CODE] SC (12:27)
--- NOTE | 2017-09-05 12:29 | NUR ---
Patient ambulated to bed 03.
--- NOTE | 2017-09-05 12:32 | NUR ---
56M BIB SELF C/O RASH TO CORNER OF RT EYE, THROBBING, RADIATES TO RT SIDE OF FACE, / X 3 DAYS; ERYTHEMA NOTED TO SITE AT THIS TIME; PT STATES NO TRAUMA OR INJURY TO SITE AT THIS TIME; PT AA&OX4, PERRLA, STATES NO VISION LOSS OR VISION CHANGES AT THIS TIME; BL LUNG SOUNDS CLEAR, RR EVEN/UNLABORED, SKIN IS WARM/DRY/INTACT AT THIS TIME; STEADY GAIT; HX: COLOSTOMY BAG, CROHN'S DISEASE; PT RESTING IN BED WITH HOB ELEVATED AND IN LOWEST POSITION; POSITIONED FOR COMFORT; ER MD MADE AWARE OF STATUS. WILL CONTINUE TO MONITOR.
--- NOTE | 2017-09-05 12:33 | NUR ---
ER MD DR. ESCOBAR EVALUATING PT AT BEDSIDE.
[2017-09-05] MEDS ORDERED: LIDOCAINE 1% 500 MG/50 ML VIAL INJ ONE (12:40)
[2017-09-05 13:51] VITALS: BP 126/84
--- NOTE | 2017-09-05 13:51 | NUR ---
Patient discharged with v/s stable. Written and verbal after care instructions given and explained. Patient alert, oriented and verbalized understanding of instructions. Ambulatory with steady gait. All questions addressed prior to discharge. ID band removed. Patient advised to follow up with PMD. Rx of CLINDAMYCIN HYDROCHLORIDE 300MG CAP & MOTRIN 800 MG TAB given. Patient educated on indication of medication including possible reaction and side effects. Opportunity to ask questions provided and answered.
== END 2017-09-05 13:51 | disposition home or self-care (01) ==
LOC: MED 12:08
DX: H44.001 Unspecified purulent endophthalmitis, right eye (principal); R03.0 Elevated blood-pressure reading, without diagnosis of hypertension; Z88.5 Allergy status to narcotic agent; K50.90 Crohn's disease, unspecified, without complications
CPT/HCPCS: 67700; 99284; J2001